=== PATIENT | female | born 1940 | race African-American/Black ===

== ENCOUNTER → 2016-11-09 | Outpatient (CLI) | payer MEDICARE, OTHER ==
[~2016-11-09] MED LIST: BARIUM SULFATE 60% 355 ML SUSP PO ONE; BARIUM SULFATE 98% 135 ML SUSP PO ONE; SIMETHICONE/SOD BICARB/CITRIC ACID PACKET. PO ONE
== END | disposition home or self-care (01) ==
LOC: RAD 09:18
PROVIDERS: ATTEND Physician Assistant
DX: R13.10 Dysphagia, unspecified (principal)
CPT/HCPCS: 74220

== ENCOUNTER 2017-01-22 11:43 | Emergency (ER) | payer MEDICARE, OTHER ==
[~2017-01-22] VITALS: Ht 172.7 cm; Wt 94.3 kg
--- NOTE | 2017-01-22 12:40 | PHYS DOC ---
Past Medical History Past Medical History: Diabetes-Type II, Other Additional Past Medical Histor: edema Past Surgical History: Tonsillectomy, Other Additional Past Surgical Histo: lumbar surgery, cervical fusion, rt carpal tunnel,trigger finger release Alcohol Use: None Drug Use: None Adult General Chief Complaint Chief Complaint: MECHANICAL FALL HPI HPI Patient is a 76 year old female who presents status post fall. Patient was at [facility] earlier today to undergo MRI as she has been having dizziness and shortness of breath since October. After the MRI she went with her daughter to [facility]. As patient went out to the car, she became dizzy. She fell into the car (to try to avoid falling to the ground), but bounced off and went down to the ground, hitting the back of her head. No LOC. She presents now with mild MCKEON and bump to back of head. She did hit her R knee, but denies any pain at this time. No other acute complaints. Of note, she does take warfarin. 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 She has appointment with her PCP and transportation planning engineer later this month for follow up. Review of Systems Review of Systems Constitutional: Dizzy earlier (chronic). Denies fever or chills Respiratory: Denies cough or shortness of breath Cardiovascular: Denies chest pain GI: Denies abdominal pain, nausea, vomiting, or diarrhea Musculoskeletal: Denies back pain or joint pain Neurologic: Mild headache. Denies focal weakness or sensory changes Allergies Allergies Allergies Coded Allergies Type Severity Reaction Last Updated Verified amoxicillin Allergy Unknown 09/26/16 Yes aspirin Allergy Unknown 09/26/16 Yes Physical Exam Physical Exam Constitutional: Well developed, well nourished, no acute distress, non-toxic appearance HENT: Normocephalic, bilateral external ears normal. Small hematoma to occipital scalp, no abrasion or laceration noted. Eyes: PERRL, EOMI, conjunctiva normal, no discharge Neck: Normal range of motion, no stridor. No midline TTP, no stepoff Cardiovascular: Heart rate normal, regular rhythm, murmur noted Lungs & Thorax: Bilateral breath sounds clear to auscultation Abdomen: Bowel sounds normal, soft, non-distended, no TTP Skin: Warm, dry, no erythema, no rash Back: No midline tenderness, no stepoff or deformity Extremities: No obvious deformity, no edema Neurologic: Alert and oriented X 3, GCS 15, CN II-XII grossly intact, strength intact and symmetrical throughout, sensation to light touch intact throughout, no dystaxia noted Psychologic: Affect normal, judgement normal, mood normal Current Patient Data Vital Signs Vital Signs Date Time Temp Pulse Resp B/P Pulse Ox O2 Delivery O2 Flow Rate FiO2 01/22/17 14:00 60 17 164/94 96 Room Air 01/22/17 11:45 97.5 97.5 EKG EKG [] Radiology/Procedures Radiology/Procedures CT head: IMPRESSION: 1. No acute intracranial abnormality is detected. 2. Small amount of fluid in the left sphenoid sinus. CT cervical spine: IMPRESSION: 1. Previous surgical cervical spine fusion. 2. Moderate multilevel degenerative change as described above. 3. No acute bony abnormality is detected. Course & Med Decision Making Course & Med Decision Making Pertinent Labs and Imaging studies reviewed. (See chart for details) Patient is 76 year old female who presents s/p fall. Apparently related to dizziness that she has had for a number of months, and for which she has undergone extensive outpatient workup. Patient asymptomatic at this time except for mild headache. Will check CT head and c-spine. Patient declines any need for pain medication at this time. Imaging results as above. Discussed results with patient, who is feeling well at this time. Patient on property assessment monitor, which is not picking up all all QRS complexes (hence recorded HR of 44); I evaluated patient at this time and this reading was inaccurate, with HR in the 60s per manual palpation of pulse as well as rate from pulse ox; sinus rhythm noted on monitor. Given chronic dizziness will not pursue further workup for this as patient is currently asymptomatic. Discussed results with patient and family member. Will discharge home with instructions for close follow up and strict return precautions. Dragon Disclaimer Dragon Disclaimer This electronic medical record was generated, in whole or in part, using a voice recognition dictation system. Departure Departure Impression: Primary Impression: Fall Disposition: 01 HOME, SELF-CARE Condition: STABLE Referrals: ANNMARIE CERVANTES MD (PCP) Patient Instructions: Fall Prevention and Home Safety Additional Instructions: Thank you for allowing us to provide care today in the Emergency Department. Keep your scheduled appointments with your primary care doctor and with your transportation planning engineer. Return promptly to the Emergency Department if you develop any new or concerning symptoms, such as worsening dizziness, passing out, chest discomfort , or shortness of breath. EUSEBIO CRAFT MD Jan 22, 2017 12:40
--- NOTE | 2017-01-22 13:41 | RAD ---
CT of the head without contrast, 01/22/2017: History: Fall The ventricles are within normal limits in size. There is no shift of the midline structures. There is no evidence of acute intracranial hemorrhage or mass effect. Minimal bilateral basal ganglia calcifications are noted. An air-fluid level is noted in the left sphenoid sinus. This is likely on an inflammatory basis. No basilar skull fracture is visualized. IMPRESSION: 1. No acute intracranial abnormality is detected. 2. Small amount of fluid in the left sphenoid sinus. CT of the cervical spine without contrast, 01/22/2017: Noncontrast scans were obtained with multiplanar reconstructions produced. There is fusion of the vertebral bodies from C3 through C6. The facet joints are also fused through this region. There are prominent anterior osteophytes in the lower cervical region with bony bridging at C6-7. 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 There is mild underlying central spinal stenosis several levels in the mid and upper cervical spine. No acute fracture or dislocation is identified. There is moderate calcific plaquing at the carotid bifurcations. IMPRESSION: 1. Previous surgical cervical spine fusion. 2. Moderate multilevel degenerative change as described above. 3. No acute bony abnormality is detected. PQRS Compliance Statement: One or more of the following individualized dose reduction techniques were utilized for this examination: 1. Automated exposure control 2. Adjustment of the mA and/or kV according to patient size 3. Use of iterative reconstruction technique
[2017-01-22 14:00] VITALS: BP 164/94
== END 2017-01-22 14:04 | disposition home or self-care (01) ==
LOC: ER 11:43
DX: R42 Dizziness and giddiness (principal); R06.02 Shortness of breath; R51 Headache; E11.9 Type 2 diabetes mellitus without complications; M48.02 Spinal stenosis, cervical region; Z98.1 Arthrodesis status; Z79.01 Long term (current) use of anticoagulants; Z88.6 Allergy status to analgesic agent; Z88.1 Allergy status to other antibiotic agents
CPT/HCPCS: 70450; 72125; 99284-25

== ENCOUNTER → 2017-01-22 | Outpatient (CLI) | payer MEDICARE, OTHER ==
[2017-01-22 10:01] LABS: CREATININE 1.5 mg/dL (0.6-1.0); GFR 41.1
--- NOTE | 2017-01-22 10:17 | RAD ---
PROCEDURE MRI brain without contrast. HISTORY Recent dizziness TECHNIQUE Multiplanar, multi sequential non contrast MR imaging was performed of the brain COMPARISON None FINDINGS There is mild motion. There is no restricted diffusion suggestive of a recent infarct or cytotoxic edema. There is no intra-axial mass effect, midline shift, extra-axial fluid collection. Ventricles, sulci, cisterns are within normal limits in size and configuration. There is mild T2 and FLAIR hyperintense signal abnormality of the supratentorial periventricular white matter bilaterally, mild extent to the deep white matter such as of the periatrial white matter, also small focus of the right frontal lobe. There has been lens surgery bilaterally, slightly dysconjugate gaze. There is patchy minimal ethmoid air cell and very minimal maxillary sinus mucosal thickening. There is likely mucous retention cyst inferior right maxillary sinus on the order of 2 centimeters. There is very mild thickening of the mastoid air cells bilaterally. There is mild to moderate posterior sphenoid sinus mucosal thickening, minimally on the right. 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 There is nonspecific increased CSF signal of the optic nerve sheaths. There is preservation of the major arterial intracranial flow voids at the skull base. 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 IMPRESSION 1. There is no evidence of recent infarct or intracranial mass effect. Mild T2 and FLAIR hyperintense signal abnormality of the supratentorial white matter is nonspecific although likely due to chronic microvascular ischemic disease in patient this age. 2. There is paranasal sinus mucosal thickening as stated greatest of the left sphenoid sinus. 3. There is increased CSF signal of the optic nerve sheaths and mostly empty sella. Nonspecific findings may be incidental although can be associated with intracranial hypertension. Electronically signed by: Skip Ruiz MD (Jan 22, 2017 10:16:01)
== END | disposition home or self-care (01) ==
LOC: MRI 08:22
PROVIDERS: ATTEND Family Medicine
DX: R41.3 Other amnesia (principal); R42 Dizziness and giddiness
CPT/HCPCS: 36415; 70551; 82565